=== PATIENT | male | born 1955 | race Caucasian/White ===

== ENCOUNTER 2021-11-07 10:21 | Inpatient (IN) | payer MEDICAID ==
[~2021-11-07] VITALS: Ht 172.7 cm; Wt 63.0 kg
--- NOTE | 2021-11-07 10:33 | NUR ---
THE PATIENT IS PRESENTED TO ER FOR C/O ABDOMINAL PAIN 06/14/NAUSEA AND VOMITING X 2 1/2 WEEKS,SEEN LAST NIGHT AT [facility] LAST NIGHT. THE PATIENT IS ALERT AND ORIENTED X4. DENIES SOB. RESPIRATION REGULAR AND UNLABORED. ATTACHED TO THE MONITOR. WARM BLANKET PROVIDED FOR COMFORT. WILL CONTINUE TO MONITOR THE PATIENT.
[2021-11-07] MEDS ORDERED: HYDROMORPHONE 1 MG/1 ML DISP.SYRIN ONE (10:57)
[2021-11-07] MEDS ORDERED: ONDANSETRON HCL/PF 4 MG/2 ML VIAL ONE (10:57)
[2021-11-07] MEDS ORDERED: IV NS 0.9% 1,000 ML BAG IV ONE (11:00)
[2021-11-07] MEDS ORDERED: ONDANSETRON HCL/PF 4 MG/2 ML VIAL IVP ONE (11:00)
[2021-11-07] MEDS ORDERED: HYDROMORPHONE INJ 2 MG/ML DISP.SYRIN IV ONE (11:00)
[2021-11-07 11:07] LABS: BASOPHILS # (AUTO) 0.1 K/uL (0.0-0.2); BASOPHILS % (AUTO) 0.6 % (0.0-2.0); EOSINOPHILS % (AUTO) 0.5 % (0.0-6.0); HEMATOCRIT 43 % (39-51); HEMOGLOBIN 14.1 g/dL (13.5-17.5); LYMPHOCYTES # (AUTO) 1.3 K/uL (0.8-4.8); LYMPHOCYTES % (AUTO) 9.6 % (20.0-44.0); MEAN CORPUSCULAR HGB CONC 33 g/dl (31.0-36.0); MEAN CORPUSCULAR VOLUME 91 fL (80-96); MONOCYTES # (AUTO) 1.4 K/uL (0.1-1.30); MONOCYTES % (AUTO) 10.6 % (2.0-12.0); NEUTROPHILS # (AUTO) 10.3 K/uL (1.8-8.9); NEUTROPHILS % (AUTO) 78.7 % (43.0-81.0); PLATELET COUNT (AUTO) 258 K/uL (150-450); RED BLOOD CELL COUNT(AUTO) 4.72 MIL/uL (4.5-6.0)
--- NOTE | 2021-11-07 11:09 | NUR ---
COVID ANTIGEN SWAB DONE AND SENT TO THE LAB
--- NOTE | 2021-11-07 11:10 | NUR ---
THE PATIENT IS TAKEN TO CT VIA GURNEY.
--- NOTE | 2021-11-07 11:18 | NUR ---
THE PATIENT IS BACK FROM CT VIA [facility]
[2021-11-07 11:29] LABS: CALCIUM, SERUM 9.8 mg/dL (8.5-10.1); CREATININE 1.7 mg/dL (0.6-1.3); POTASSIUM 4.9 mmol/L (3.5-5.1)
[2021-11-07 11:35] LABS: ALBUMIN 3.8 g/dL (3.4-5.0); BILIRUBIN,DIRECT 0.6 mg/dL (0.0-0.2); BILIRUBIN,TOTAL 1.2 mg/dL (0.2-1.0)
--- NOTE | 2021-11-07 12:08 | NUR ---
CALLED NURSE SUP REGARDING PT BED
[2021-11-07] MEDS ORDERED: ASPI-1169 PO (12:14)
[2021-11-07] MEDS ORDERED: SACU1TAB PO (12:14)
[2021-11-07] MEDS ORDERED: FURO-144 PO (12:14)
[2021-11-07] MEDS ORDERED: PIPERACILLIN /TAZOBACTAM 3.375 G in IV D5W 50 ML IV ONE (12:30)
--- NOTE | 2021-11-07 14:22 | NUR ---
BED 314-2
--- NOTE | 2021-11-07 14:29 | NUR ---
REPORT GIVEN TO NURSE JHA FOR ILIR
--- NOTE | 2021-11-07 15:30 | NUR ---
ms rn received a new admission from er, 66 year old male,awake,alert,oriented x4,came in w/ abd pain and vomoting, denies pain at this time, will monitor patient at this time.
--- NOTE | 2021-11-07 16:00 | NUR ---
ms rn on bed, no distress noted,all needs attended.
[2021-11-07] MEDS ORDERED: ACETAMINOPHEN 325 MG TABLET PO PRN (16:30)
[2021-11-07] MEDS ORDERED: MAG HYDROX/AL HYDROX/SIMETH 30 ML UDC PO PRN (16:30)
[2021-11-07] MEDS ORDERED: Z GUARD REMEDY 4 OZ OINT TP PRN (16:30)
[2021-11-07] MEDS ORDERED: MAGNESIUM HYDROXIDE 30 ML UDC PO PRN (16:30)
[2021-11-07] MEDS ORDERED: ZOLPIDEM TARTRATE 5 MG TABLET PO PRN (16:30)
[2021-11-07] MEDS: ONDANSETRON HCL/PF 4 MG/2 ML VIAL IVP PRN ×2 (17:27→23:07)
--- NOTE | 2021-11-07 18:44 | NUR ---
RN ON BED, ZOFRAN IV GIVEN FOR NAUSEA, AND WAS EFFECTIVE.
[2021-11-07] MEDS: ZOSYN IVPB 3.375 G in IV D5W 50ml IV SCH (19:45)
[2021-11-07 20:00] VITALS: BP 111/90
--- NOTE | 2021-11-07 20:03 | NUR ---
MS RN OPENING NOTE PATIENT RECEIVED AWAKE IN BED. A/OX3. NO S/S OF DISTRESS, BREATHING SYMMETRICAL ON ROOM AIR. LAC #20 INTACT AND PATENT. SAFETY MEASURES IN PLACE: BED AT LOWEST POSITION, RAILS UP X2, CALL HERBERT WITHIN REACH. WILL CONTINUE TO MONITOR PATIENT.
[2021-11-08] MEDS: ZOSYN IVPB 3.375 G in IV D5W 50ml IV SCH ×5 (00:43→23:22)
--- NOTE | 2021-11-08 06:50 | NUR ---
MS RN CLOSING NOTE PATIENT IS AWAKE IN BED. A/OX4. NO S/S OF DISTRESS, BREATHING UNLABORED ON ROOM AIR. LAC #20 SL INTACT AND PATENT. SAFETY MEASURES IN PLACE: BED AT LOWEST POSITION, RAILS UP X3, CALL HERBERT WITHIN REACH. WILL ENDORSE TO FOLLOWING SHIFT FOR ILIR.
[2021-11-08 07:14] LABS: BASOPHILS % (AUTO) 0.4 % (0.0-2.0); EOSINOPHILS % (AUTO) 0.8 % (0.0-6.0); HEMATOCRIT 39 % (39-51); HEMOGLOBIN 12.9 g/dL (13.5-17.5); LYMPHOCYTES # (AUTO) 1.2 K/uL (0.8-4.8); LYMPHOCYTES % (AUTO) 12.6 % (20.0-44.0); MEAN CORPUSCULAR HGB CONC 33 g/dl (31.0-36.0); MEAN CORPUSCULAR VOLUME 91 fL (80-96); MONOCYTES # (AUTO) 1.5 K/uL (0.1-1.30); MONOCYTES % (AUTO) 15.4 % (2.0-12.0); NEUTROPHILS # (AUTO) 6.9 K/uL (1.8-8.9); NEUTROPHILS % (AUTO) 70.8 % (43.0-81.0); PLATELET COUNT (AUTO) 213 K/uL (150-450); RED BLOOD CELL COUNT(AUTO) 4.32 MIL/uL (4.5-6.0); WHITE BLOOD COUNT (AUTO) 9.7 K/uL (4.3-11.0)
[2021-11-08] MEDS: PANTOPRAZOLE 40 MG TABLET.DR PO SCH (07:39)
--- NOTE | 2021-11-08 07:52 | NUR ---
MS RN OPENING NOTES PATIENT IS AWAKE IN BED. A/OX4. NO S/S OF DISTRESS, BREATHING UNLABORED ON ROOM AIR. LAC #20 SL INTACT AND PATENT. SAFETY MEASURES IN PLACE: BED IN LOWEST LOCKED POSITION, SIDE RAILS UP X3, CALL HERBERT WITHIN REACH. WILL CONTINUE TO MONITOR.
[2021-11-08 08:07] LABS: CALCIUM, SERUM 9.4 mg/dL (8.5-10.1); CREATININE 1.8 mg/dL (0.6-1.3); POTASSIUM 5.4 mmol/L (3.5-5.1)
[2021-11-08 08:12] LABS: MAGNESIUM 2.7 mg/dL (1.8-2.4); PHOSPHORUS 4.4 mg/dL (2.5-4.9)
[2021-11-08 09:30] VITALS: BP 116/91
[2021-11-08 11:39] LABS: EOSINOPHILS % (MANUAL) 3 % (0-4); LYMPHOCYTES % (MANUAL) 9 % (16-48); MONOCYTES % (MANUAL) 17 % (0-11.0); NEUTROPHILS % (MANUAL) 71 (42-76)
--- NOTE | 2021-11-08 11:42 | NUR ---
MS RN NOTE PATIENT COMPLAINT OF STOMACH PAIN 3/10 AND GAS AND REQUESTING MEDICATION. PRN MAALOX 30 ML ADMINISTERED ORDERED. WILL CONTINUE TO MONITOR FOR S/S OF DYSPEPSIA.
[2021-11-08] MEDS ORDERED: IV NS 0.9% 1,000 ML IV ONE (13:00)
[2021-11-08] MEDS ORDERED: ZOLPIDEM TARTRATE 5 MG TABLET PO PRN (13:00)
[2021-11-08] MEDS: SIMETHICONE 80 MG TAB.CHEW PO PRN ×2 (13:08→18:19)
--- NOTE | 2021-11-08 18:19 | NUR ---
MS RN NOTES PATIENT COMPLAINT AGAIN OF 3/10 ABDOMINAL PAIN AND GAS AND REQUESTING MEDICATION. PRN 80 MG SIMETHACONE ADMINISTERED ORDERED. WILL CONTINUE TO MONITOR FOR S/S OF PAIN AND BLOATING.
--- NOTE | 2021-11-08 18:32 | NUR ---
MS RN NOTES PATIENT RESTING IN BED, AROUSABLE BY NAME TO A/OX4. NO S/S OF DISTRESS, BREATHING UNLABORED ON ROOM AIR. LAC #20 SL INTACT AND PATENT. SAFETY MEASURES IN PLACE: BED IN LOWEST LOCKED POSITION, SIDE RAILS UP X3, CALL HERBERT WITHIN REACH. WILL CONTINUE TO MONITOR.
--- NOTE | 2021-11-08 19:45 | NUR ---
RN NOTES RECEIVED PATIENT AWAKE ON BED, A/OX4, TALKING NASTY THING, COMPLAINED OF ABDOMINAL PAIN AND ASKING FOR ENEMA, EXPLAINED TO HIM THAT I WILL NEED TO GET AN ORDER FROM AN MD, CALLLIGHT WITHIN REACH, SIDERAILSUPX2, WILL CONTINUE TO MONITOR
--- NOTE | 2021-11-08 19:50 | NUR ---
RN NOTES PATIENT ASKED FOR ENEMA- GOT AN ORDER FROM MIRNA WALDRON-DISHWASHER PREPARER , ORDER NOTED AND CARRIED OUT
[2021-11-08 20:00] VITALS: BP 98/68
[2021-11-08] MEDS ORDERED: NA PHOS,M-B/NA PHOS,DI-BA 1 EA ENEMA RC PRN (20:00)
[2021-11-08 20:32] VITALS: BP 98/68
--- NOTE | 2021-11-08 20:45 | NUR ---
RN NOTES NOTICED SACRAL REDNESS- PT REFUSED PHOTO
--- NOTE | 2021-11-08 21:43 | NUR ---
RN NOTES PT. ASKED FOR SLEEPING PILLS- AMBIEN 10 MG PO GIVEN ORDERED, V/S STABLE
[2021-11-09 00:20] LABS: CREATININE, URINE 92.4 MG/DL (30.0-125.0); URINE TOTAL PROTEIN 29.2 mg/dL (0-11.9)
--- NOTE | 2021-11-09 05:00 | NUR ---
RN NOTES PATIENT ACCIDENTALLY PULLED OUT HIS IV, NEW IV ACCESS INSERTED ON THE RIGHT FOREARM GAUGE 22
[2021-11-09] MEDS: ZOSYN IVPB 3.375 G in IV D5W 50ml IV SCH ×2 (05:53→11:27)
--- NOTE | 2021-11-09 06:22 | NUR ---
RN NOTES SLEEPING BUT AROUSABLE, MORNING CARE RENDERED, DENIES PAIN, NO SOB, CALL LIGHT WITHIN REACH, SIDERAILSUPX2, PT. NEEDS ATTENDED
[2021-11-09 06:43] LABS: BASOPHILS % (AUTO) 0.3 % (0.0-2.0); EOSINOPHILS % (AUTO) 0.7 % (0.0-6.0); HEMATOCRIT 38 % (39-51); HEMOGLOBIN 12.5 g/dL (13.5-17.5); LYMPHOCYTES # (AUTO) 1.3 K/uL (0.8-4.8); LYMPHOCYTES % (AUTO) 14.3 % (20.0-44.0); MEAN CORPUSCULAR HGB CONC 33 g/dl (31.0-36.0); MEAN CORPUSCULAR VOLUME 91 fL (80-96); MONOCYTES # (AUTO) 1.1 K/uL (0.1-1.30); MONOCYTES % (AUTO) 12.5 % (2.0-12.0); NEUTROPHILS # (AUTO) 6.6 K/uL (1.8-8.9); NEUTROPHILS % (AUTO) 72.2 % (43.0-81.0); PLATELET COUNT (AUTO) 219 K/uL (150-450); RED BLOOD CELL COUNT(AUTO) 4.18 MIL/uL (4.5-6.0); WHITE BLOOD COUNT (AUTO) 9.1 K/uL (4.3-11.0)
--- NOTE | 2021-11-09 07:27 | NUR ---
MS RN OPENING NOTES PATIENT RECEIVED AWAKE IN BED IN NO ACUTE SIGNS OF DISTRESS. A/OX4. ABLE TO MAKE NEEDS KNOWN, DENIES PAIN OR DISCOMFORTS AT THIS TIME. PT FOR HIDA SCAN TODAY, NPO MAINTAINED. ON ROOM AIR, TOLERATING WELL WITH NO SOB NOTED. IV ACCESS ON RFA #22G INTACT AND PATENT. SAFETY MEASURES IN PLACE: BED AT LOWEST LOCKED POSITION, SIDE-RAILS UP X2, CALL HERBERT WITHIN REACH. WILL CONTINUE TO MONITOR PATIENT.
[2021-11-09] MEDS: PANTOPRAZOLE 40 MG TABLET.DR PO SCH (07:30)
[2021-11-09 07:33] LABS: ALBUMIN 3.3 g/dL (3.4-5.0); BILIRUBIN,TOTAL 1.9 mg/dL (0.2-1.0); CREATININE 1.9 mg/dL (0.6-1.3); MAGNESIUM 2.4 mg/dL (1.8-2.4); PHOSPHORUS 4.4 mg/dL (2.5-4.9); POTASSIUM 4.6 mmol/L (3.5-5.1); TOTAL PROTEIN, SERUM 6.6 g/dL (6.4-8.2)
[2021-11-09 08:00] VITALS: BP 110/81
--- NOTE | 2021-11-09 09:32 | NUR ---
RN NOTES PT PICKED-UP VIA WHEELCHAIR FOR HIDA SCAN.
--- NOTE | 2021-11-09 10:49 | NUR ---
RN NOTES PT RETURNED TO UNIT S/P HIDA SCAN.
--- NOTE | 2021-11-09 10:58 | NUR ---
NM: PAULA SCAN WAS COMPLETED: TECH:RB
--- NOTE | 2021-11-09 12:06 | NUR ---
"SS Consult: SS consult for homelessness. Pt. Is a 66-year-old male who demonstrate adequate insight to the reason for hospitalization. Pt. was oriented x3, alert, and hardly cooperative. During interview, pt. was capable of following directions, made appropriate eye-contact, and appeared unkempt. Pt.s speech was at a normal rate. Pt.s mood was irritable. SW explored pt.s Hx of mental health and substance abuse. Pt. reported no Hx of mental health, substance abuse, suicidal and homicidal. Pt. denies auditory hallucinations, visual hallucinations, paranoia, or delusions. SW explored pt.s living situation. Pt. stated that he is not homeless and has a place to go once discharged. Pt. would not provide address and stated, somewhere in the [place] with friends. SW offered care home resources and pt. accepted. Pt. reject going to a care home once discharged. Plan: SW provided available homeless resources and pt. accepted. Once discharge, per pt., he has a place stay, but would not provide address. Pt. was not cooperative. Pt. was not willing to sign homeless waiver. GERTRUDSI placed waiver in pt.s chart. Resources Provided: Winter Shelters: SPA 2 | [facility] Address: Confidential (call for location ) Population Served: [place] # of Beds: 57 SPA 4 | [facility] Provider: [facility] Address: [address] [place] [address] # of Beds: 49 Population Served: [place] SPA 6 | [facility] Provider: [facility] Address: [address] [place] [address] # of Beds: 49 Population Served: [facility] Provider: Jethro VITALE Address: [address] [facility] [address] # of Beds: 20 Population Served: Women [facility] Facility Provider: [facility] Address: [address] [facility] [address] # of Beds: 30 Population Served: Women SPA 8 | [facility] Provider: [facility] Address: [address] [facility] [address] # of Beds: 65 Population Served: [facility] Year-round shelters: [facility] [place] [address] [place] [address] ; [facility] [place] [address] [facility] [place] [address]; [facility] [address] [facility] [address] Winter Shelters: Zuly Lozano [place] Provider: [facility] [place] Address: [address] [place], [address] # of Beds: 47 Population Served: [facility] 6 | [facility] Kellee Renteria [place] Provider: [facility] Address: [address] [place] [address], [address] # of Beds: 66 Population Served: [facility] [place] Provider: [facility] Address: [address] [facility], [address] # of Beds: 56 Population Served: [facility] [place] Provider: [facility] Address: [address] [facility], [address] # of Beds: 49 Population Served: [facility] SPA 8 | [facility] Provider: [facility] Serve Address: [address] [facility], [address] # of Beds: 37 Population Served: [facility] Hygiene: [facility]: [address] [place] ; [facility] [address] [place] ; [facility] [address] Vance Collazo . Food Resources: [facility] at [facility]- [address] [place]; Meet Each Need with [facility] ([facility]) [address] [place]; [facility] [address] [facility]; [facility] [address] [facility]. Mental Health resources provided: [facility] [address] [place], [place] [id number] ; [facility] [address] [facility] [address], [place] [address] ; [facility] [address] [place] [address] ; [facility] [place], [place] [id number] Healthcare Clinics: [facility] [address] [facility], [address] [place]. [place] ; [facility] [address] [facility] [address] [place] [address]; [facility] [address] [facility] [place] [address] [phone]"
--- NOTE | 2021-11-09 12:17 | NUR ---
RN NOTES RESULTS OF HIDA SCAN NORMAL, REPORTED TO DR RHODES ORDERED TO START PT\ATIENT ON SOFT DIET.
--- NOTE | 2021-11-09 17:04 | NUR ---
RN NOTES PT IS A/OX4. ABLE TO MAKE NEEDS KNOWN AND VERBALIZED THAT HE WANTS TO GO HOME AGAINST MEDICAL ADVICE. EXPLAINED TO PT THE RISKS AND CONSEQUENCES INVOLVED IN LEAVING THE HOSPITAL AT THIS TIME, THE BENEFITS OF CONTINUED TREATMENTS AND HOSPITAL STAY AT THIS TIME, BUT PT STILL INSISTED TO LEAVE AMA. PT SIGNED AMA FORM. ALL BELONGINGS ACCOUNTED FOR AND PT SIGNED BELONGINGS LIST FORM. CHARGE NURSE AND MD MADE AWARE. IV ACCESS ON RFA #22G REMOVED WITH NO ACTIVE BLEEDING NOTED, DRY PRESSURE DRESSING APPLIED AT SITE. NAME ARMBAND REMOVED. PT LEFT UNIT AMBULATORY AT 1700.
== END 2021-11-09 17:00 | disposition left against medical advice (07) ==
LOC: ER 10:22 → MED 14:28
PROVIDERS: ADMIT Student in an Organized Health Care Education/Training Program; ATTEND Student in an Organized Health Care Education/Training Program
DX: K81.9 Cholecystitis, unspecified (principal); N17.0 Acute kidney failure with tubular necrosis; K65.2 Spontaneous bacterial peritonitis; R18.8 Other ascites; I50.9 Heart failure, unspecified; E83.41 Hypermagnesemia; E87.1 Hypo-osmolality and hyponatremia; E86.0 Dehydration; D72.829 Elevated white blood cell count, unspecified; N39.0 Urinary tract infection, site not specified; K29.70 Gastritis, unspecified, without bleeding; D64.9 Anemia, unspecified; E87.5 Hyperkalemia; F17.200 Nicotine dependence, unspecified, uncomplicated; Z20.822 Contact with and (suspected) exposure to COVID-19; G89.29 Other chronic pain; I25.10 Atherosclerotic heart disease of native coronary artery without angina pectoris; Z86.16 Personal history of COVID-19; K40.90 Unilateral inguinal hernia, without obstruction or gangrene, not specified as recurrent; Z53.29 Procedure and treatment not carried out because of patient's decision for other reasons; Z79.82 Long term (current) use of aspirin; Z95.0 Presence of cardiac pacemaker; K59.00 Constipation, unspecified; Z79.899 Other long term (current) drug therapy
CPT/HCPCS: 36415; 71045-TC; 74018; 76705-TC; 76770-TC; 78226; 80048-TC; 80053-TC; 80076-TC; 82570-TC; 83605-TC; 83690-TC; 83735-TC; 84100-TC; 84155-TC; 84300-TC; 85025-TC; A9537; C9803; G0378; J1170; J2405; J2543; J7030; J7050; J7060